=== PATIENT | male | born 2000 | race Caucasian/White ===

== ENCOUNTER 2020-08-01 18:12 | Emergency (ER) | payer SELFPAY ==
[2020-08-01] MEDS ORDERED: Ketorolac 30 MG/ML SDV IVPUSH ONE (18:21)
[2020-08-01] MEDS ORDERED: Sodium Chloride 0.9% 10 ML Syringe FLUSH PRN (18:21)
[2020-08-01] MEDS ORDERED: levETIRAcetam 1,500 MG in Sodium Chloride 0.9% 100 ML IV STA (18:24)
--- NOTE | 2020-08-01 19:22 | EDM.PDOC ---
ED HPI GENERAL MEDICAL PROBLEM - General Chief Complaint: General Stated Complaint: ZIURES Time Seen by Provider: 08/01/20 18:15 Source of Information: Reports: Patient History Limitations: Reports: No Limitations - History of Present Illness INITIAL COMMENTS - FREE TEXT/NARRATIVE: Patient presented to the ED because of a brief episode of seizure at about 1830. The friend witnessed it and it was generalized body jerking and brief LOC. there was post ictal confusion and headache. He has a history of seizure but quit taking his medicine in 2019. He also c/o upper and low back pain after sledding. He use weed and drink alcohol 1-2 times a week, upper mid back Pain Score (Numeric/FACES): 8 - Related Data Allergies Allergy/AdvReac Type Severity Reaction Status Date / Time No Known Allergies Allergy Verified 08/01/20 18:23 Home Meds: Home Meds Cyclobenzaprine [Flexeril] 10 mg PO Q8H PRN #15 tab 08/01/20 [Rx] Ibuprofen 800 mg PO Q8H PRN #30 tablet 08/01/20 [Rx] Past Medical History Neurological History: Reports: Seizure Social & Family History - Tobacco Use Tobacco Use Status *Q: Current Every Day Tobacco User Years of Tobacco use: 3 Packs/Tins Daily: 1 - Alcohol Use Days Per Week of Alcohol Use: 1 Number of Drinks Per Day: 1 Total Drinks Per Week: 1 - Recreational Drug Use Recreational Drug Use: Yes Recreational Drug Type: Reports: Marijuana/Hashish ED ROS GENERAL - Review of Systems Review Of Systems: See Below Constitutional: Reports: No Symptoms HEENT: Reports: No Symptoms Respiratory: Reports: No Symptoms Cardiovascular: Reports: No Symptoms Endocrine: Reports: No Symptoms GI/Abdominal: Reports: No Symptoms : Reports: No Symptoms Musculoskeletal: Reports: No Symptoms, Back Pain Skin: Reports: No Symptoms Neurological: Reports: Headache Psychiatric: Reports: No Symptoms Hematologic/Lymphatic: Reports: No Symptoms ED EXAM, GENERAL - Physical Exam Exam: See Below Exam Limited By: No Limitations General Appearance: Alert, No Apparent Distress Eye Exam: Bilateral Eye: PERRL Ears: Normal External Exam, Normal Canal Nose: Normal Inspection, Normal Mucosa, No Blood Throat/Mouth: Normal Inspection Head: Atraumatic, Normocephalic Neck: Normal Inspection, Supple, Non-Tender, Full Range of Motion Respiratory/Chest: No Respiratory Distress, Lungs Clear, Normal Breath Sounds Cardiovascular: Normal Peripheral Pulses, Regular Rate, Rhythm, No Edema, No Gallop GI/Abdominal: Normal Bowel Sounds, Soft, Non-Tender, Pelvis Stable Back Exam: Normal Inspection, Full Range of Motion Extremities: Normal Inspection, Normal Range of Motion, Non-Tender Neurological: Confused Course - Vital Signs Text/Narrative:: Lab result was discussed with patient Kejaneera 1.5 gm IV Last Recorded V/S: Last Vital Signs Temp 37.6 C 08/01/20 18:12 Pulse 90 08/01/20 18:12 Resp 27 H 08/01/20 18:12 BP 133/90 08/01/20 18:12 Pulse Ox 100 08/01/20 18:12 - Orders/Labs/Meds Orders: Active Orders 24 hr Category Date Time Status Lumbar Spine 2 or 3V [CR] Stat Exams 08/01/20 18:24 Taken Thoracic Spine 3V [CR] Stat Exams 08/01/20 18:23 Taken CBC WITH AUTO DIFF [HEME] Stat Lab 08/01/20 18:35 Received COMPREHENSIVE METABOLIC PN,CMP [CHEM] Stat Lab 08/01/20 18:35 Results DRUG SCREEN, URINE ALERE [URCHEM] Stat Lab 08/01/20 18:21 Received ETHANOL BLOOD MEDICAL [CHEM] Stat Lab 08/01/20 18:35 Received Sodium Chloride 0.9% [Saline Flush] Med 08/01/20 18:21 Active 10 ml FLUSH ASDIRECTED PRN Saline Lock Insert [OM.PC] Routine Oth 08/01/20 18:21 Ordered Medication Orders Sodium Chloride (Saline Flush) 10 ml FLUSH ASDIRECTED PRN PRN Reason: Keep Vein Open Last Admin: 08/01/20 18:41 Dose: 10 ml Documented by: RONNIE Labs: Laboratory Tests 08/01/20 Range/Units 18:35 Sodium 138 (135-145) mmol/L Potassium 4.1 (3.5-5.3) mmol/L Chloride 100 (100-110) mmol/L Carbon Dioxide 24 (21-32) mmol/L BUN 14 (7-18) mg/dL Creatinine 1.2 (0.70-1.30) mg/dL Est Cr Clr Drug Dosing 99.27 mL/min Estimated GFR (MDRD) > 60 (>60) BUN/Creatinine Ratio 11.7 (9-20) Glucose 100 (80-116) mg/dL Calcium 8.8 (8.6-10.2) mg/dL Meds: Medications Generic Name Dose Route Start Last Admin Trade Name Fatemeh PRN Reason Stop Dose Admin Sodium Chloride 10 ml 08/01/20 18:21 08/01/20 18:41 Saline Flush FLUSH 10 ml ASDIRECTED PRN Administration Keep Vein Open Discontinued Medications Generic Name Dose Route Start Last Admin Trade Name Fatemeh PRN Reason Stop Dose Admin Levetiracetam 1,500 mg/ Sodium 115 mls @ 400 mls/hr 08/01/20 18:24 08/01/20 18:30 Chloride IV 08/01/20 18:41 400 mls/hr NOW STA Administration Ketorolac Tromethamine 30 mg 08/01/20 18:21 08/01/20 18:32 Toradol IVPUSH 08/01/20 18:22 30 mg ONETIME ONE Administration Departure - Departure Time of Disposition: 19:30 Disposition: Home, Self-Care 01 Condition: Good Clinical Impression: Seizure, Musculoskeletal strain - Discharge Information Prescriptions: Cyclobenzaprine [Flexeril] 10 mg PO Q8H PRN #15 tab PRN Reason: Spasms Ibuprofen 800 mg PO Q8H PRN #30 tablet PRN Reason: Pain Sepsis Event Note (ED) - Evaluation Sepsis Screening Result: No Definite Risk - Focused Exam Vital Signs: Vital Signs Temp Pulse Resp BP Pulse Ox 08/01/20 18:12 37.6 C 90 27 H 133/90 100 - My Orders Last 24 Hours: My Active Orders 08/01/20 18:21 DRUG SCREEN, URINE ALERE [URCHEM] Stat Sodium Chloride 0.9% [Saline Flush] 10 ml FLUSH ASDIRECTED PRN Saline Lock Insert [OM.PC] Routine 08/01/20 18:23 Thoracic Spine 3V [CR] Stat 08/01/20 18:24 Lumbar Spine 2 or 3V [CR] Stat 08/01/20 18:35 CBC WITH AUTO DIFF [HEME] Stat COMPREHENSIVE METABOLIC PN,CMP [CHEM] Stat ETHANOL BLOOD MEDICAL [CHEM] Stat - Assessment/Plan Last 24 Hours: My Active Orders 08/01/20 18:21 DRUG SCREEN, URINE ALERE [URCHEM] Stat Sodium Chloride 0.9% [Saline Flush] 10 ml FLUSH ASDIRECTED PRN Saline Lock Insert [OM.PC] Routine 08/01/20 18:23 Thoracic Spine 3V [CR] Stat 08/01/20 18:24 Lumbar Spine 2 or 3V [CR] Stat 08/01/20 18:35 CBC WITH AUTO DIFF [HEME] Stat COMPREHENSIVE METABOLIC PN,CMP [CHEM] Stat ETHANOL BLOOD MEDICAL [CHEM] Stat
[2020-08-01] MEDS ORDERED: Cyclobenzaprine 10 MG Tab PO STA (19:33)
--- NOTE | 2020-08-02 16:34 | CR ---
INDICATION: Upper back pain. THORACIC SPINE 3 VIEWS: Three views of the thoracic spine were obtained 08/01/20 - no comparisons. A minimal dextroconcave scoliosis is noted at the upper middle thoracic spine. Lateral view did not provide ideal visualization of the spine. However, vertebral body and disk heights appear to be fairly well maintained. Pedicles appear to be intact. Bone density appeared to be normal. IMPRESSION: Mild scoliosis. If occult bony abnormality is suspected clinically, nuclear bone imaging or MRI may be helpful for further evaluation. MTDD
--- NOTE | 2020-08-02 16:38 | CR ---
INDICATION: Low back pain/injury. LUMBAR SPINE: Three views of the lumbosacral spine were obtained 08/01/20 - no comparison. A metallic density likely a grommet on end is noted overlying L5 on the lateral views. Spina bifida occulta is noted at S1. Vertebral body and disk heights appear to be fairly well maintained with normal bone density and no acute fracture or dislocation identified. IMPRESSION: Essentially normal lumbosacral spine. If symptoms persist - if occult bony abnormality is suspected clinically, additional examination may be helpful such as nuclear bone imaging, MRI or CT. MTDD
== END 2020-08-01 19:47 | disposition home or self-care (01) ==
LOC: FB.ED 18:12
DX: S29.012A Strain of muscle and tendon of back wall of thorax, initial encounter (principal); S39.012A Strain of muscle, fascia and tendon of lower back, initial encounter; R56.9 Unspecified convulsions; Z72.0 Tobacco use; X58.XXXA Exposure to other specified factors, initial encounter; Y93.23 Activity, snow (alpine) (downhill) skiing, snowboarding, sledding, tobogganing and snow tubing
CPT/HCPCS: 36415; 72072; 72100; 80053; 80305-QW; 80307; 85025; 96365; 96375; 99284-25; A9270-GY; J1885; J1953

== ENCOUNTER 2020-08-04 04:56 | Emergency (ER) | payer BC ==
[2020-08-04] MEDS ORDERED: LORazepam 2 MG/ML SDV ONE (05:22)
[2020-08-04] MEDS ORDERED: LORazepam 2 MG/ML SDV IVPUSH ONE ×2 (05:25→05:44)
--- NOTE | 2020-08-04 05:51 | EDM.PDOC ---
<Jagjit Melgoza - Last Filed: 08/04/20 05:46> ED HPI GENERAL MEDICAL PROBLEM - General Time Seen by Provider: 08/04/20 05:46 Source of Information: Reports: Patient History Limitations: Reports: No Limitations - History of Present Illness INITIAL COMMENTS - FREE TEXT/NARRATIVE: Delvin was brought in by ambulance after a witnessed prolonged seizure. He is known,by his friends ,to have stress induced seizures. He was seen 3 days ago for similar reasons. John,after an argument with his girlfriend,and drinking some alcohol,he has a seizure for about 30 min. He was also found to have a chest press bar across his chest. He is too agitated and intoxated to give any coherent history. he does state he quit his seizure Meds in 2019.His friend,Kavon,stated that he has made threatening statements,either to harm others or harm himself. - Related Data Allergies Allergy/AdvReac Type Severity Reaction Status Date / Time No Known Allergies Allergy Verified 08/04/20 05:46 Home Meds: Home Meds Cyclobenzaprine [Flexeril] 10 mg PO Q8H PRN #15 tab 08/01/20 [Rx] Ibuprofen 800 mg PO Q8H PRN #30 tablet 08/01/20 [Rx] levETIRAcetam [Keppra] 1,000 mg PO BID #60 tablet 08/04/20 [Rx] Past Medical History Neurological History: Reports: Seizure ED ROS GENERAL - Review of Systems Review Of Systems: Comprehensive ROS is negative, except as noted in HPI. - Physical Exam Exam: See Below Exam Limited By: Other (agitated) General Appearance: Alert Ears: Normal External Exam Nose: Normal Inspection Throat/Mouth: Normal Inspection Head Exam: Atraumatic, Normocephalic Neck: Normal Inspection, Supple Respiratory/Chest: No Respiratory Distress, Lungs Clear Cardiovascular: Normal Peripheral Pulses GI/Abdominal: Normal Bowel Sounds Neuro Exam (Abbreviated): Alert, Oriented, CN II-XII Intact Extremities: Normal Inspection Psychiatric: Anxious #1 Interpretation EKG Date: 08/04/20 Rhythm: NSR Departure - Departure Disposition: Home, Self-Care 01 Clinical Impression: Seizure disorder, Alcohol intoxication - Discharge Information Prescriptions: levETIRAcetam [Keppra] 1,000 mg PO BID #60 tablet Instructions: Epilepsy, [id number], Alcohol Intoxication, Ccum-[id number], Suicidal Feelings: How to Help Yourself Referrals: Jagjit Melgoza MD [ED Physician] - 2 Days Additional Instructions: Fill the prescription for Keppra and take as directed. Avoid alcohol consumption. Follow up with your primary physician in 2 days. Return to the ER as needed. - Problem List & Annotations (1) Elevated ETOH level SNOMED Code(s): 547373463 Code(s): R78.0 - FINDING OF ALCOHOL IN BLOOD Status: Acute Current Visit: Yes (2) Seizure SNOMED Code(s): 72708707 Code(s): R56.9 - UNSPECIFIED CONVULSIONS Status: Acute Current Visit: No - Problem List Review Problem List Initiated/Reviewed/Updated: Yes - Assessment/Plan Plan: I ordered lorazepam for agitation,and he was restrained physically. I ordered labs,including a CXR and CT head. <Christopher Ortiz - Last Filed: 08/04/20 07:48> ED HPI GENERAL MEDICAL PROBLEM - History of Present Illness INITIAL COMMENTS - FREE TEXT/NARRATIVE: I assumed patient care from Dr. Melgoza at 0600. Patient has a prior history of seizure disorder but is non-compliant with Keppra because he recently moved to the area and does not yet have insurance, so cannot afford the medication. Patient admits to occasionally feeling suicidal, but denies suicidal thoughts at this time. Patient admits to drinking alcohol socially. Admits to THC use, denies current use of other illicit drugs. Past Medical History Neurological History: Reports: Seizure Social & Family History - Tobacco Use Tobacco Use Status *Q: Current Every Day Tobacco User Tobacco Use Within Last Twelve Months: Cigarettes - Alcohol Use Alcohol Use History: Yes Alcohol Use in Last Twelve Months: Yes Alcohol Use Frequency: Socially - Physical Exam Eye Exam: Bilateral Eye: EOMI, PERRL #1 Interpretation Time: 05:00 Rhythm: NSR Rate (Beats/Min): 103 [place]: Normal P-Wave: Present QRS: Normal ST-T: Other (ST elevation, probable normal early repolarization pattern) Course - Vital Signs Last Recorded V/S: Last Vital Signs Temp 35.9 C L 08/04/20 04:56 Pulse 103 H 08/04/20 06:57 Resp 18 08/04/20 06:57 BP 113/63 08/04/20 06:57 Pulse Ox 100 08/04/20 06:57 - Orders/Labs/Meds Orders: Active Orders 24 hr Category Date Time Status EKG Documentation Completion [RC] ASDIRECTED Care 08/04/20 05:15 Active EKG Documentation Completion [RC] ASDIRECTED Care 08/04/20 06:25 Active Chest 1V Frontal [CR] Stat Exams 08/04/20 05:15 Taken Head wo Cont [CT] Stat Exams 08/04/20 05:44 Taken DRUG SCREEN, URINE ALERE [URCHEM] Stat Lab 08/04/20 05:15 Ordered ETHANOL BLOOD MEDICAL [CHEM] Urgent Lab 08/04/20 07:10 Ordered UA W/MICROSCOPIC [URIN] Stat Lab 08/04/20 06:25 Ordered Sodium Chloride 0.45% 1,000 ml Med 08/04/20 06:10 Active IV ASDIRECTED EKG 12 Lead [EK] Routine Ther 08/04/20 05:15 Ordered EKG 12 Lead [EK] Stat Ther 08/04/20 06:25 Stop Req Medication Orders Sodium Chloride (Sodium Chloride 0.45%) 1,000 mls @ 999 mls/hr IV ASDIRECTED RAMIN Last Admin: 08/04/20 06:10 Dose: 999 mls/hr Documented by: OSIRIS Labs: Laboratory Tests 08/04/20 08/04/20 08/04/20 Range/Units 05:10 05:10 05:10 WBC 7.9 (3.2-10.1) x10-3/uL RBC 5.11 (3.90-5.90) x10(6)uL Hgb 15.8 (12.9-17.7) g/dL Hct 48.9 (38.3-50.1) % MCV 95.8 (80.8-98.7) fL MCH 30.9 (27.0-33.3) pg MCHC 32.3 (28.7-35.3) g/dL RDW 14.0 (12.4-15.0) % Plt Count 269 (117-477) x10(3)uL MPV 9.3 (6.7-11.0) fL Neut % (Auto) 51.7 (40.3-71.8) % Lymph % (Auto) 38.7 (15.8-45.3) % [place] % (Auto) 8.5 (5.5-15.2) % Eos % (Auto) 0.7 (0.1-6.8) % Baso % (Auto) 0.4 (0.3-3.8) % Neut # (Auto) 4.1 (1.7-6.9) x10-3/uL Lymph # (Auto) 3.1 (0.5-4.5) x10-3/uL [place] # (Auto) 0.7 (0.0-1.2) x10-3/uL Eos # (Auto) 0.1 (0.0-0.6) x10-3/uL Baso # (Auto) 0.0 (0.0-0.3) x10-3/uL Sodium 148 H D (135-145) mmol/L Potassium 4.2 (3.5-5.3) mmol/L Chloride 109 D (100-110) mmol/L Carbon Dioxide 27 (21-32) mmol/L BUN 9 (7-18) mg/dL Creatinine 1.1 (0.70-1.30) mg/dL Est Cr Clr Drug Dosing TNP Estimated GFR (MDRD) > 60 (>60) BUN/Creatinine Ratio 8.2 L (9-20) Glucose 104 (80-116) mg/dL Calcium 9.2 (8.6-10.2) mg/dL Magnesium (1.8-2.5) mg/dL Total Bilirubin (0.1-1.3) mg/dL Direct Bilirubin (0.10-0.20) mg/dL AST (5-25) IU/L ALT (12-36) U/L Alkaline Phosphatase (56-112) IU/L Total Protein (6.0-8.0) g/dL Albumin (3.5-5.2) g/dL TSH, Ultra Sensitive (0.36-3.74) IU/mL Salicylates (<2.8) mg/dL Acetaminophen (<2) ug/mL Ethyl Alcohol 0.20 H* (<0.03) % 08/04/20 08/04/20 08/04/20 Range/Units 05:10 05:10 05:10 WBC (3.2-10.1) x10-3/uL RBC (3.90-5.90) x10(6)uL Hgb (12.9-17.7) g/dL Hct (38.3-50.1) % MCV (80.8-98.7) fL MCH (27.0-33.3) pg MCHC (28.7-35.3) g/dL RDW (12.4-15.0) % Plt Count (117-477) x10(3)uL MPV (6.7-11.0) fL Neut % (Auto) (40.3-71.8) % Lymph % (Auto) (15.8-45.3) % [place] % (Auto) (5.5-15.2) % Eos % (Auto) (0.1-6.8) % Baso % (Auto) (0.3-3.8) % Neut # (Auto) (1.7-6.9) x10-3/uL Lymph # (Auto) (0.5-4.5) x10-3/uL [place] # (Auto) (0.0-1.2) x10-3/uL Eos # (Auto) (0.0-0.6) x10-3/uL Baso # (Auto) (0.0-0.3) x10-3/uL Sodium (135-145) mmol/L Potassium (3.5-5.3) mmol/L Chloride (100-110) mmol/L Carbon Dioxide (21-32) mmol/L BUN (7-18) mg/dL Creatinine (0.70-1.30) mg/dL Est Cr Clr Drug Dosing Estimated GFR (MDRD) (>60) BUN/Creatinine Ratio (9-20) Glucose (80-116) mg/dL Calcium (8.6-10.2) mg/dL Magnesium 2.3 (1.8-2.5) mg/dL Total Bilirubin 0.2 (0.1-1.3) mg/dL Direct Bilirubin 0.13 (0.10-0.20) mg/dL AST 38 H D (5-25) IU/L ALT 64 H (12-36) U/L Alkaline Phosphatase 89 (56-112) IU/L Total Protein 7.9 (6.0-8.0) g/dL Albumin 4.2 (3.5-5.2) g/dL TSH, Ultra Sensitive (0.36-3.74) IU/mL Salicylates 2.7 L (<2.8) mg/dL Acetaminophen < 2 L (<2) ug/mL Ethyl Alcohol (<0.03) % 08/04/20 Range/Units 05:10 WBC (3.2-10.1) x10-3/uL RBC (3.90-5.90) x10(6)uL Hgb (12.9-17.7) g/dL Hct (38.3-50.1) % MCV (80.8-98.7) fL MCH (27.0-33.3) pg MCHC (28.7-35.3) g/dL RDW (12.4-15.0) % Plt Count (117-477) x10(3)uL MPV (6.7-11.0) fL Neut % (Auto) (40.3-71.8) % Lymph % (Auto) (15.8-45.3) % [place] % (Auto) (5.5-15.2) % Eos % (Auto) (0.1-6.8) % Baso % (Auto) (0.3-3.8) % Neut # (Auto) (1.7-6.9) x10-3/uL Lymph # (Auto) (0.5-4.5) x10-3/uL [place] # (Auto) (0.0-1.2) x10-3/uL Eos # (Auto) (0.0-0.6) x10-3/uL Baso # (Auto) (0.0-0.3) x10-3/uL Sodium (135-145) mmol/L Potassium (3.5-5.3) mmol/L Chloride (100-110) mmol/L Carbon Dioxide (21-32) mmol/L BUN (7-18) mg/dL Creatinine (0.70-1.30) mg/dL Est Cr Clr Drug Dosing Estimated GFR (MDRD) (>60) BUN/Creatinine Ratio (9-20) Glucose (80-116) mg/dL Calcium (8.6-10.2) mg/dL Magnesium (1.8-2.5) mg/dL Total Bilirubin (0.1-1.3) mg/dL Direct Bilirubin (0.10-0.20) mg/dL AST (5-25) IU/L ALT (12-36) U/L Alkaline Phosphatase (56-112) IU/L Total Protein (6.0-8.0) g/dL Albumin (3.5-5.2) g/dL TSH, Ultra Sensitive 1.92 (0.36-3.74) IU/mL Salicylates (<2.8) mg/dL Acetaminophen (<2) ug/mL Ethyl Alcohol (<0.03) % Meds: Medications Generic Name Dose Route Start Last Admin Trade Name Freq PRN Reason Stop Dose Admin Sodium Chloride 1,000 mls @ 999 mls/hr 08/04/20 06:10 08/04/20 06:10 Sodium Chloride 0.45% IV 999 mls/hr ASDIRECTED RAMIN Administration Discontinued Medications Generic Name Dose Route Start Last Admin Trade Name Freq PRN Reason Stop Dose Admin Levetiracetam 1,000 mg/ Sodium 110 mls @ 400 mls/hr 08/04/20 06:13 08/04/20 06:45 Chloride IV 08/04/20 06:27 400 mls/hr ONETIME ONE Administration Lorazepam Confirm 08/04/20 05:22 08/04/20 05:36 Ativan Administered 08/04/20 05:23 Not Given Dose 2 mg .ROUTE .STK-MED ONE Lorazepam 1 mg 08/04/20 05:25 08/04/20 05:25 Ativan IVPUSH 08/04/20 05:26 1 mg ONETIME ONE Administration Lorazepam 1 mg 08/04/20 05:44 08/04/20 05:55 Ativan IVPUSH 08/04/20 05:45 1 mg ONETIME ONE Administration Thiamine HCl 100 mg 08/04/20 06:15 08/04/20 06:44 Vitamin B-1 IVPUSH 08/04/20 06:16 100 mg ONETIME ONE Administration - Radiology Interpretation Free Text/Narrative:: Head CT s/ contrast: Impression: 1. No acute intracranial process. 2. Mucosal thickening and frothy secretions in the right maxillary sinus, concerning for acute sinusitis. Dictated by Brooks Cano MD @ Aug 04 2020 6:57AM. CXR: No acute process. (ED provider interpretation) - Re-Assessments/Exams Free Text/Narrative Re-Assessment/Exam: 08/04/20 07:42 Patient had a 15 second tonic clonic seizure @0632, which spontaneously resolved (prior to receiving IV Keppra). No seizure activity since. Patient is alert and orientated, ambulates without assistance, and currently denies suicidal ideation. He will be discharged home to the care of his roommate. [facility] safe deposit clerk confirms patient has active insurance ([employer] [facility]), he was informed of this. Prescription for Keppra electronically sent to pharmacy of choice. Departure - Departure Time of Disposition: 07:33 Condition: Good - Discharge Information *PRESCRIPTION DRUG MONITORING PROGRAM REVIEWED*: Yes *COPY OF PRESCRIPTION DRUG MONITORING REPORT IN PATIENT DAVID: Not Applicable Sepsis Event Note (ED) - Focused Exam Vital Signs: Vital Signs Temp Pulse Resp BP Pulse Ox 08/04/20 06:57 103 H 18 113/63 100 08/04/20 06:32 128 H 18 116/84 100 08/04/20 06:00 114 H 16 114/51 L 100 08/04/20 05:30 126 H 18 133/89 100 08/04/20 04:56 35.9 C L 113 H 16 128/60 100 - My Orders Last 24 Hours: My Active Orders 08/04/20 06:25 EKG Documentation Completion [RC] ASDIRECTED UA W/MICROSCOPIC [URIN] Stat EKG 12 Lead [EK] Stat 08/04/20 07:10 ETHANOL BLOOD MEDICAL [CHEM] Urgent - Assessment/Plan Last 24 Hours: My Active Orders 08/04/20 06:25 EKG Documentation Completion [RC] ASDIRECTED UA W/MICROSCOPIC [URIN] Stat EKG 12 Lead [EK] Stat 08/04/20 07:10 ETHANOL BLOOD MEDICAL [CHEM] Urgent
[2020-08-04] MEDS ORDERED: Sodium Chloride 0.45% 1,000 ML IV SCH (06:10)
[2020-08-04] MEDS ORDERED: levETIRAcetam 1,000 MG in Sodium Chloride 0.9% 100 ML IV ONE (06:13)
[2020-08-04] MEDS ORDERED: Thiamine 200 MG/2 ML MDV IVPUSH ONE (06:15)
[2020-08-04 06:49] LABS: ACETAMINOPHEN < 2 ug/mL (<2)
--- NOTE | 2020-08-06 10:38 | CR ---
INDICATION: Seizure. CHEST, ONE VIEW: An AP upright portable view of the chest was obtained 08/04/20 - no comparison chest examinations. Overlying EKG lead snaps are noted. The heart, mediastinum, and bony thorax are unremarkable except for noted very minimal dextroconvex scoliosis. An active infiltrate or effusion was not identified. IMPRESSION: No acute process. MTDD
== END 2020-08-04 07:45 | disposition home or self-care (01) ==
LOC: FB.ED 04:56
DX: G40.909 Epilepsy, unspecified, not intractable, without status epilepticus (principal); F10.129 Alcohol abuse with intoxication, unspecified; Y90.0 Blood alcohol level of less than 20 mg/100 ml; Z72.0 Tobacco use
CPT/HCPCS: 36415; 70450; 71045; 80048; 80076; 80143; 80179; 80307; 83735; 84443; 85025; 93005; 93010; 96365; 96375; 99283; 99285-25; J1953; J2060; J3411; J3490

== ENCOUNTER 2020-08-12 01:21 | Emergency (ER) | payer BC, MEDICAID ==
--- NOTE | 2020-08-12 01:38 | EDM.PDOC ---
ED HPI GENERAL MEDICAL PROBLEM - General Stated Complaint: SEIZURE, ALCOHOL Time Seen by Provider: 08/12/20 01:38 Source of Information: Reports: Patient, EMS Notes Reviewed, Family History Limitations: Reports: Intoxication - History of Present Illness INITIAL COMMENTS - FREE TEXT/NARRATIVE: Delvin is here because of a seizure. This is his third visit to the ED for a similar reason,in less than 10days. His girlfriend called because he had a seizure,witnessed,for a few minutes. No tongue jonathan or incontinence.He has also been drinking. His seizures are typically stress induced. He was [place] n [place],but has not been able o do that since his move to [facility] - Related Data Allergies Allergy/AdvReac Type Severity Reaction Status Date / Time No Known Allergies Allergy Verified 08/04/20 05:46 Home Meds: Home Meds Cyclobenzaprine [Flexeril] 10 mg PO Q8H PRN #15 tab 08/01/20 [Rx] Ibuprofen 800 mg PO Q8H PRN #30 tablet 08/01/20 [Rx] levETIRAcetam [Keppra] 1,000 mg PO BID #60 tablet 08/04/20 [Rx] levETIRAcetam [Keppra] 1,000 mg PO BID #60 tablet 08/12/20 [Rx] levETIRAcetam [Keppra] 1,000 mg PO BID #60 tablet 08/12/20 [Rx] Past Medical History Musculoskeletal History: Reports: Fracture Other Musculoskeletal History: hx L femur fx, hx boxer's fx R hand Neurological History: Reports: Seizure Psychiatric History: Reports: Anxiety, Depression, Psych Hospitalization(s), Suicide Attempt - Past Surgical History Musculoskeletal Surgical History: Reports: Other (See Below) Other Musculoskeletal Surgeries/Procedures:: L femur pinning Social & Family History - Caffeine Use Caffeine Use: Reports: Energy Drinks, Soda ED ROS GENERAL - Review of Systems Review Of Systems: Comprehensive ROS is negative, except as noted in HPI. - Physical Exam Exam: See Below Exam Limited By: Intoxication General Appearance: Alert, WD/WN Ears: Normal External Exam Nose: Normal Inspection Throat/Mouth: Normal Inspection Head Exam: Atraumatic, Normocephalic Neck: Normal Inspection Respiratory/Chest: No Respiratory Distress Cardiovascular: Normal Peripheral Pulses Back Exam: Normal Inspection Extremities: Normal Inspection Psychiatric: Other (talkative/pressure of speech) Skin Exam: Warm Course - Vital Signs Text/Narrative:: Patient was alter through out.He did have a seizure in the ED,and we gave him 1 g of IV keppra. Last Recorded V/S: Last Vital Signs Temp 97.1 F 08/12/20 01:21 Pulse 115 H 08/12/20 01:21 Resp 35 H 08/12/20 01:21 BP 115/68 08/12/20 01:21 Pulse Ox 98 08/12/20 01:21 - Orders/Labs/Meds Meds: Medications Discontinued Medications Generic Name Dose Route Start Last Admin Trade Name Freq PRN Reason Stop Dose Admin Levetiracetam 1,000 mg/ Sodium 110 mls @ 400 mls/hr 08/12/20 02:03 08/12/20 02:10 Chloride IV 08/12/20 02:17 400 mls/hr ONETIME ONE Administration Departure - Departure Time of Disposition: 01:38 Disposition: Home, Self-Care 01 Condition: Good Clinical Impression: Seizure disorder, Alcohol intoxication - Discharge Information Prescriptions: levETIRAcetam [Keppra] 1,000 mg PO BID #60 tablet levETIRAcetam [Keppra] 1,000 mg PO BID #60 tablet Instructions: Seizure, Adult, [id number] Referrals: PCP,None [Primary Care Provider] - Forms: ED Department Discharge Additional Instructions: please make an appointment with your primary care on Thursday please take Keppra 1000mg twice a day drink enough fluid - Problem List & Annotations (1) Alcohol intoxication SNOMED Code(s): 18262112 Code(s): F10.929 - ALCOHOL USE, UNSPECIFIED WITH INTOXICATION, UNSPECIFIED Status: Acute Qualifiers: Complication of substance-induced condition: uncomplicated Qualified Code(s): F10.920 - Alcohol use, unspecified with intoxication, uncomplicated (2) Seizure disorder SNOMED Code(s): 650326555 Code(s): G40.909 - EPILEPSY, UNSP, NOT INTRACTABLE, WITHOUT STATUS EPILEPTICUS Status: Acute - Problem List Review Problem List Initiated/Reviewed/Updated: Yes - Assessment/Plan Plan: I will send him home with a new script for Keppra to be filled tomorrow,with strict instructions to visit PCP on Thursday
[2020-08-12] MEDS ORDERED: levETIRAcetam 1,000 MG in Sodium Chloride 0.9% 100 ML IV ONE (02:03)
== END 2020-08-12 02:50 | disposition home or self-care (01) ==
LOC: FB.ED 01:21
DX: G40.909 Epilepsy, unspecified, not intractable, without status epilepticus (principal); F10.129 Alcohol abuse with intoxication, unspecified; Z79.899 Other long term (current) drug therapy
CPT/HCPCS: 96365; 99284-25; J1953

== ENCOUNTER 2020-08-16 21:59 | Emergency (ER) | payer BC ==
[2020-08-16] MEDS ORDERED: levETIRAcetam 500 MG Tab PO ONE (22:34)
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
== END 2020-08-16 22:50 ==
LOC: FB.ED 21:59
DX: G40.909 Epilepsy, unspecified, not intractable, without status epilepticus (principal); S00.81XA Abrasion of other part of head, initial encounter; S60.511A Abrasion of right hand, initial encounter; S50.812A Abrasion of left forearm, initial encounter; F10.10 Alcohol abuse, uncomplicated; Z79.899 Other long term (current) drug therapy; X58.XXXA Exposure to other specified factors, initial encounter
CPT/HCPCS: 99283; A9270

== ENCOUNTER 2020-08-18 00:11 | Emergency (ER) | payer BC ==
[2020-08-18] MEDS ORDERED: levETIRAcetam 500 MG Tab PO ONE (00:23)
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
[2020-08-18] MEDS ORDERED: Acetaminophen 325 MG Tab PO ONE (00:36)
== END 2020-08-18 01:10 | disposition home or self-care (01) ==
LOC: FB.ED 00:11
DX: S01.81XA Laceration without foreign body of other part of head, initial encounter (principal); S40.022A Contusion of left upper arm, initial encounter; S40.211A Abrasion of right shoulder, initial encounter; Y04.0XXA Assault by unarmed brawl or fight, initial encounter
CPT/HCPCS: 99283

== ENCOUNTER 2020-10-01 07:05 | Emergency (ER) | payer BC ==
[2020-10-01] MEDS: Sodium Chloride 0.9% 10 ML Syringe FLUSH PRN ×2 (07:15→08:00)
[2020-10-01] MEDS ORDERED: Ketorolac 60 MG/2 ML SDV IM STA (07:29)
[2020-10-01] MEDS ORDERED: levETIRAcetam 1,500 MG in Sodium Chloride 0.9% 100 ML IV STA (07:29)
[2020-10-01] MEDS ORDERED: LORazepam 2 MG/ML SDV IVPUSH STA (07:29)
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
== END 2020-10-01 08:55 | disposition home or self-care (01) ==
LOC: FB.ED 07:05
DX: R56.9 Unspecified convulsions (principal); F41.0 Panic disorder [episodic paroxysmal anxiety]; R51.9 Headache, unspecified; Z79.899 Other long term (current) drug therapy
CPT/HCPCS: 36415; 70450; 80053; 80307; 85025; 96365; 96372; 96375; 99284; J1885; J1953; J2060